=== PATIENT | male | born 1960 | race Caucasian/White ===

== ENCOUNTER 2019-05-20 01:39 | Emergency (ER) | payer OTHER ==
[2019-05-20] MEDS ORDERED: Nitroglycerin 2% Ointment 1 INCH/1 GM Packet ONE (02:15)
[2019-05-20] MEDS ORDERED: Ondansetron PF 4 MG/2 ML Vial ONE (02:15)
[2019-05-20] MEDS ORDERED: Aspirin Chewable 81 MG TAB ONE (02:15)
[2019-05-20] MEDS ORDERED: Lidocaine Viscous Sol 2% 15 ml UD Cup ONE (02:15)
[2019-05-20] MEDS ORDERED: Mag-Al Plus 1200 MG/1200 MG/120 MG/30 ML UDCUP ONE (02:15)
[2019-05-20 02:59] LABS: #Basophils 0.1 thou/uL (0.0-0.2); #Eosinphils 0.2 thou/uL (0.0-0.7); #Lymphocytes 1.8 thou/uL (1.20-3.40); #Monocytes 0.4 thou/uL (0.11-0.59); #Neutrophils 2.8 thou/uL (1.40-6.50); %Eosinophils 3.1 % (0.0-10.0); %Lymphocytes 34.1 % (21.0-51.0); %Monocytes 7.5 % (0.0-10.0); %Neutrophils 53.2 % (42.0-75.0); Mean Corpuscular HGB CONC 33.8 g/dL (32.0-36.0); Mean Corpuscular Hemoglobin 30.5 pg (27.0-31.0); Mean Corpuscular Volume 90.3 fL (78.0-98.0); Mean Platelet Volume 8.9 fL (7.4-10.4); Platelet Count 179 thou/uL (130-400); RBC Distribution Width 12.2 % (11.5-14.5); Red Blood Cell (RBC) Count 4.25 mill/uL (4.70-6.10); White Blood Cell (WBC) Count 5.2 thou/uL (4.8-10.8)
[2019-05-20 03:10] LABS: ALT (SGPT) 18 U/L (8-55); AST (SGOT) 11 U/L (5-34); Alkaline Phosphatase 52 U/L (40-150); Anion Gap 14 mmol/L (10-20); BUN (Urea Nitrogen) 16 mg/dL (8.4-25.7); Bilirubin, Total 0.3 mg/dL (0.2-1.2); Calc. Creatinine Clearance 0 mL/min (70-130); Calcium 8.3 mg/dL (7.8-10.44); Carbon Dioxide 22 mmol/L (22-29); Chloride 110 mmol/L (98-107); Estimated GFR-MDRD Greater than 90; Globulin 2.6 g/dL (2.4-3.5); Glucose 110 mg/dL (70-105); Lipase 18 U/L (8-78); Potassium 4.1 mmol/L (3.5-5.1); Protein, Total 6.6 g/dL (6.0-8.3); Sodium 142 mmol/L (136-145)
[2019-05-20] MEDS ORDERED: Famotidine/PF 20 mg/2ml Vial ONE (03:53)
[2019-05-20 05:47] LABS: Troponin I Less than 0.010 ng/mL (< 0.028)
--- NOTE | 2019-05-20 07:58 | RAD ---
RADIOGRAPH CHEST 1 VIEW: DATE: 05/20/2019 HISTORY: 58-year-old male with chest pain FINDINGS: There are no airspace densities, pulmonary edema, pneumothorax, or cardiomegaly. The lateral costophr enic angles are sharp. IMPRESSION: No acute cardiopulmonary findings.
== END 2019-05-20 06:14 | disposition home or self-care (01) ==
LOC: SCSER 01:39
DX: K21.9 Gastro-esophageal reflux disease without esophagitis (principal); I10 Essential (primary) hypertension; Z79.899 Other long term (current) drug therapy
CPT/HCPCS: 71045; 80053; 83690; 84484; 85025; 85379; 93005; 96374; 96375; J2405; S0028

== ENCOUNTER 2019-10-16 07:30 | Outpatient (CLI) | payer OTHER ==
[2019-10-16] MEDS ORDERED: Iopamidol 370 76% 100 ML VIAL ONE (10:17)
--- NOTE | 2019-10-16 11:48 | CT ---
CT ABDOMEN AND PELVIS: Date: 10/16/2019 COMPARISON: None. HISTORY: Lower abdominal pain. TECHNIQUE: Axial CT imaging at 5 mm intervals from the lung bases through the pubic symphysis with intravenous a nd oral contrast. Coronal and sagittal reformatted imaging obtained. FINDINGS: The imaged lung bases are unremarkable. No free intraperitoneal air or fluid is seen. The liver, gallbladder, spleen, pancreas, adrenal glands, and kidneys are grossly unremarkable. There is a small, fat-containing inguinal hernia on the right. No evidence for bowel inflammatory change or bowel obstruction is noted. The appendix appears grossly unremarkable. The vascular structures of the abdomen/pelvis appear grossly unremarkable. No acute osseous abnormality is noted. There is mild degenerative change within the lower lumbar spin e. There is disc space narrowing with disc bulge and vacuum disc formation at L4-5. There is also filippo ateral L4-5 facet hypertrophy with significant bilateral L4-5 neural foraminal stenosis. IMPRESSION: Incidental findings as detailed above. No evidence for bowel obstruction, bowel inflammatory change, or appendicitis is seen. Significant lumbar spine degenerative change as detailed above. POS: [facility]
== END 2019-10-16 07:31 | disposition home or self-care (01) ==
LOC: CT 07:30
DX: R10.30 Lower abdominal pain, unspecified (principal); M47.816 Spondylosis without myelopathy or radiculopathy, lumbar region
CPT/HCPCS: 74177; Q9967

== ENCOUNTER 2020-01-25 07:02 | Outpatient (CLI) | payer OTHER ==
--- NOTE | 2020-01-25 07:41 | ULT ---
Sonogram right upper quadrant HISTORY: Right upper quadrant pain. FINDINGS: Small non-shadowing mobile echogenicity is present within the dependent portion of the gall bladder lumen. No gallbladder wall thickening or pericholecystic fluid. Common duct is 0.3 cm. Liver unremarkable without focal mass or intrahepatic biliary dilatation. No free fluid. Mild promine nce of the right renal pelvis correlates with findings on recent CT exam. Obstruction is not suspected. IMPRESSION : Cholelithiasis. No evidence of acute biliary obstruction.
== END 2020-01-25 07:03 | disposition home or self-care (01) ==
LOC: BICULT 07:02
PROVIDERS: ATTEND Internal Medicine Gastroenterology
DX: K21.9 Gastro-esophageal reflux disease without esophagitis (principal); K40.90 Unilateral inguinal hernia, without obstruction or gangrene, not specified as recurrent; K42.9 Umbilical hernia without obstruction or gangrene; N50.811 Right testicular pain; R10.32 Left lower quadrant pain; K80.20 Calculus of gallbladder without cholecystitis without obstruction; Z80.0 Family history of malignant neoplasm of digestive organs
CPT/HCPCS: 76705

== ENCOUNTER 2020-02-05 06:18 | Outpatient (CLI) | payer OTHER ==
[2020-02-05 11:50] LABS: Mean Corpuscular HGB CONC 32.7 g/dL (32.0-36.0); Mean Corpuscular Hemoglobin 30.5 pg (27.0-31.0); Mean Corpuscular Volume 93.4 fL (78.0-98.0); Mean Platelet Volume 8.7 fL (7.4-10.4); Platelet Count 187 thou/uL (130-400); RBC Distribution Width 11.7 % (11.5-14.5); Red Blood Cell (RBC) Count 4.59 mill/uL (4.70-6.10); White Blood Cell (WBC) Count 7.3 thou/uL (4.8-10.8)
[2020-02-05 12:12] LABS: ALT (SGPT) 19 U/L (8-55); AST (SGOT) 14 U/L (5-34); Albumin 4.4 g/dL (3.5-5.0); Alkaline Phosphatase 51 U/L (40-110); Anion Gap 12 mmol/L (10-20); BUN (Urea Nitrogen) 16 mg/dL (8.4-25.7); Bilirubin, Direct 0.2 mg/dL (0.1-0.3); Bilirubin, Total 0.3 mg/dL (0.2-1.2); Calc. Creatinine Clearance 0 mL/min (70-130); Calcium 8.4 mg/dL (7.8-10.44); Carbon Dioxide 24 mmol/L (22-29); Chloride 108 mmol/L (98-107); Estimated GFR-MDRD 90; Glucose 102 mg/dL (70-105); Potassium 4.3 mmol/L (3.5-5.1); Sodium 140 mmol/L (136-145)
[2020-02-05 18:21] LABS: SARS-CoV-2 MS2 Positive; SARS-CoV-2 N Gene Negative; SARS-CoV-2 S Gene Negative; SARS-CoV-2 orf1ab Negative
--- NOTE | 2020-02-07 16:35 | EKG ---
Test Reason : Blood Pressure : / mmHG Vent. Rate : 067 BPM Atrial Rate : 067 BPM P-R Int : 164 ms QRS Dur : 096 ms QT Int : 412 ms P-R-T Axes : 081 078 076 degrees QTc Int : 435 ms Normal sinus rhythm Normal ECG When compared with ECG of 20-MAY-2019 02:50, Nonspecific T wave abnormality no longer evident in Inferior leads Confirmed by LIZBETH MARCUS (2) on 02/07/2020 4:35:21 PM Referred By: REBECCA Confirmed By:LIZBETH MARCUS
== END 2020-02-05 06:19 | disposition home or self-care (01) ==
LOC: LABBT 06:18
PROVIDERS: ATTEND Surgery
DX: Z01.818 Encounter for other preprocedural examination (principal); Z11.59 Encounter for screening for other viral diseases; K80.20 Calculus of gallbladder without cholecystitis without obstruction
CPT/HCPCS: 80048; 80076; 85027; 87635; 93005; 93010; U0003

== ENCOUNTER 2020-02-09 06:48 | Day surgery (SDC) | payer OTHER ==
[2020-02-05 10:29] VITALS: BMI 29.3
[2020-02-09] MEDS ORDERED: Bupivacaine 0.25% HCL 30 ML VIAL ONE (08:37)
[2020-02-09] MEDS ORDERED: Lidocaine 1% w/Epinephrine 1:100K 20 ML VIAL ONE (08:37)
[2020-02-09] MEDS ORDERED: Midazolam HCl 2 mg/2 ml Vial ONE (08:39)
[2020-02-09] MEDS ORDERED: Fentanyl 100 MCG/2 ML VIAL ONE ×3 (08:39→10:15)
--- NOTE | 2020-02-09 10:06 | OP ---
DATE OF PROCEDURE: 02/09/2020 PREOPERATIVE DIAGNOSES: Symptomatic gallstones, umbilical hernia. POSTOPERATIVE DIAGNOSES: Symptomatic gallstones, umbilical hernia. PROCEDURES PERFORMED: Laparoscopic cholecystectomy, umbilical hernia repair without mesh. ANESTHESIA: General. ESTIMATED BLOOD LOSS: Minimal. COMPLICATIONS: None. SPECIMENS: Gallbladder. FINDINGS: Chronic cholecystitis. DESCRIPTION OF PROCEDURE: The patient was taken to the operating room and laid supine on the operating room table. After general anesthetic was obtained, the abdomen was shaved, prepped, and draped in a sterile fashion. A curved incision was made below the umbilicus. Umbilical stalk was amputated from the fascia exposing the umbilical defect. Taylor trocar was placed. High-flow pneumoperitoneum was obtained. Three right upper quadrant 5 mm ports were placed under direct visualization. The gallbladder was retracted from the gallbladder fossa. The peritoneum was opened anteriorly and posteriorly. The critical view triangle was seen showing only the cystic duct and cystic artery branching from medial to lateral. There were no other branching structures. Two clips were placed proximally, one distally. Cystic duct was cut using laparoscopic scissors. Cystic artery was taken in the same way. Cautery was then used to dissect the gallbladder out of the gallbladder fossa. The gallbladder was placed in an Endo catch bag and brought out through the Taylor. Local anesthetic was infiltrated around all port sites. All ports were removed under camera visualization without bleeding. Pneumoperitoneum was let down. PDS was used to close the fascial defect with the umbilical hernias. Umbilical stalk was tacked back down using Vicryl. The wounds were closed using 4-0 Monocryl and Dermabond. The patient was sent to Recovery in stable condition. All instrument counts, needle counts, and lap counts were correct. Job ID: [id number]
[2020-02-09] MEDS ORDERED: Ketorolac Tromethamine 30 MG/ML VIAL ONE (10:56)
[2020-02-09] MEDS ORDERED: PROPOFOL 200 MG/20 ML VIAL ONE (10:56)
[2020-02-09] MEDS ORDERED: Rocuronium Bromide 10 MG/ML (10ML VIAL) ONE (10:56)
[2020-02-09] MEDS ORDERED: Ondansetron PF 4 MG/2 ML Vial ONE (10:56)
[2020-02-09] MEDS ORDERED: Dexamethasone 20 MG/5 ML VIAL ONE (10:56)
[2020-02-09] MEDS ORDERED: Lidocaine 1% PF 5 ML VIAL ONE (10:56)
[2020-02-09] MEDS ORDERED: HYDROcodone/Acetaminophen 5/325 mg Tablet ONE (11:39)
== END 2020-02-09 12:20 | disposition home or self-care (01) ==
LOC: SDC 06:48
PROVIDERS: ATTEND Surgery
PROC: 0WQF0ZZ Repair Abdominal Wall, Open Approach (ICD-10-PCS; principal; 2020-02-09)
PROC: 0FT44ZZ Resection of Gallbladder, Percutaneous Endoscopic Approach (ICD-10-PCS; principal; 2020-02-09)
DX: K80.10 Calculus of gallbladder with chronic cholecystitis without obstruction (principal); K42.9 Umbilical hernia without obstruction or gangrene; Z79.899 Other long term (current) drug therapy; Z88.5 Allergy status to narcotic agent; Z88.8 Allergy status to other drugs, medicaments and biological substances
CPT/HCPCS: 88304; J0690; J1100; J1885; J2001; J2250; J2405; J2704; J3010; S0020